=== PATIENT | female | born 1970 | race Caucasian/White ===

== ENCOUNTER 2017-08-25 08:22 | Emergency (ER) | payer BC ==
[~2017-08-25] VITALS: Ht 167.6 cm; Wt 117.4 kg
[~2017-08-25 08:22] MED LIST: AMLODIPINE BESYL5 MG PO; CLONIDINE HCL0.1 MG PO; Ceftin PO; DILAUDID4 MG PO; GABAPENTIN300 MG PO; HYDROCHLOROTHIA25 MG PO; LEVAQUIN500 MG PO; MILK OF MAGN PO; MOTRIN IB200 MG PO; MOTRIN800 MG PO; NAPROXEN500 MG PO; NORTRIPTYLINE H10 MG PO; Percocet 7.5/500,End PO; SINGULAIR10 MG PO; SOMA350 MG PO; VERAPAMIL HCL240 MG PO; VICODIN,LORT1 TABLET PO; XANAX1 MG PO; ZOFRAN4 MG PO; phenergan PO
[2017-08-25 10:13] VITALS: BP 147/86
[2017-08-25] MEDS ORDERED: PERCOCET 5/31 TABLET PO (10:46)
== END 2017-08-25 10:53 | disposition home or self-care (01) ==
LOC: EME 08:22
DX: S80.01XA Contusion of right knee, initial encounter (principal); I10 Essential (primary) hypertension; X50.9XXA Other and unspecified overexertion or strenuous movements or postures, initial encounter; Y92.89 Other specified places as the place of occurrence of the external cause; Z88.8 Allergy status to other drugs, medicaments and biological substances
CPT/HCPCS: 73564; 99281; 99284

== ENCOUNTER 2018-05-13 16:26 | Emergency (ER) | payer BC ==
[~2018-05-13] VITALS: Ht 167.6 cm; Wt 119.6 kg
[~2018-05-13 16:26] MED LIST changes: +PERCOCET 5/31 TABLET PO
[2018-05-13 16:57] LABS: HEMATOCRIT 43.7 % (36.0-46.0); HEMOGLOBIN 15.3 G/DL (11.9-15.5); MCH 30.8 PG (29.0-34.0); MCV 88.1 FL (83-99); PLATELET COUNT 396 K/uL (156-360); RBC DIS.WIDTH-CV 12.5 % (11.8-14.6); RBC DIS.WIDTH-SD 40.3 % (39-53); RED BLOOD COUNT 4.96 M/uL (3.80-5.20); WHITE BLOOD COUNT 13.1 K/uL (4.1-10.2)
[2018-05-13 17:09] LABS: APPEARANCE CLOUDY ((CLEAR)); BILIRUBIN NEGATIVE; BLOOD MODERATE; COLOR YELLOW ((YELLOW)); GLUCOSE (STRIP) NEGATIVE; KETONES NEGATIVE; LEUKOCYTES LARGE; NITRITE POSITIVE; PROTEIN (STRIP) 30; SPECIFIC GRAVITY 1.006 (1.000-1.030); UROBILINOGEN 0.2 MG/DL (0.2-1.0)
[2018-05-13 17:24] LABS: CHLORIDE 101 mEq/L (99-109); POTASSIUM 3.6 mEq/L (3.7-5.4); SODIUM 134 mEq/L (136-147)
[2018-05-13 17:26] LABS: GLUCOSE 62 mg/dL (70-99)
[2018-05-13 17:30] LABS: CREATININE 0.8 mg/dL (0.6-1.3); GFR ESTIMATE (CALCULATED) > 59 mL/min/
[2018-05-13 17:31] LABS: UREA NITROGEN (BUN) 13 mg/dL (9-23)
[2018-05-13 17:39] LABS: QUANTITATIVE HCG < 4.0 MIU/ML
[2018-05-13 17:55] LABS: RED BLOOD CELLS RARE /HPF (0-5)
[2018-05-13 17:56] LABS: BACTERIA 1+ /HPF; EPITHELIAL CELLS 2+ /HPF; MUCUS NONE SEEN /LPF; UCUL ADDED? YES; WHITE BLOOD CELLS 15-20 /HPF (0-5)
[2018-05-13] MEDS ORDERED: PERCOCET 5/31 TABLET PO (21:06)
[2018-05-13] MEDS ORDERED: BACTRIM,SEPT1 TABLET PO (21:08)
[2018-05-13 22:00] VITALS: BP 159/89
== END 2018-05-13 22:02 | disposition home or self-care (01) ==
LOC: EME 16:26
PROVIDERS: Emergency Medicine
DX: N12 Tubulo-interstitial nephritis, not specified as acute or chronic (principal); Z87.442 Personal history of urinary calculi; I10 Essential (primary) hypertension; K21.9 Gastro-esophageal reflux disease without esophagitis; Z90.49 Acquired absence of other specified parts of digestive tract; Z88.6 Allergy status to analgesic agent; Z88.8 Allergy status to other drugs, medicaments and biological substances
CPT/HCPCS: 74176; 80048; 81003; 82948; 83605; 84702; 85027; 87040; 87077; 87086; 87186; 99281; 99285; J0696; J2405; J3010; J7030